=== PATIENT | female | born 1995 | race Hispanic/Latino ===

== ENCOUNTER → 2022-05-28 | Outpatient (CLI) | payer MEDICAID ==
[~2022-05-28] MED LIST: CRAN400C PO; IBUP200T49 PO; MOME17SP4; MONT10TA6 PO; PHEN15CA6 PO; PNV1TABL31 PO; PREN1TAB59 PO
== END | disposition home or self-care (01) ==
LOC: NPLAB 16:28
PROVIDERS: ATTEND Nurse Practitioner Family
DX: Z11.3 Encounter for screening for infections with a predominantly sexual mode of transmission (principal)
CPT/HCPCS: 87086

== ENCOUNTER 2024-06-06 20:32 | Emergency (ER) | payer SELFPAY ==
[~2024-06-06] VITALS: Ht 160 cm; Wt 62.6 kg
[2024-06-06 20:32] VITALS: BP 128/99; PULSE 72; RESP 18; TEMP 98.7; O2SAT 100
[~2024-06-06 20:32] MED LIST changes: -CRAN400C PO; +CRANBERRY400 MG PO; +MONT-45 PO; -MONT10TA6 PO; +NS 1000ML ONE
[2024-06-06 21:05] VITALS: BP 123/78; PULSE 71; RESP 18; TEMP 98.7; O2SAT 100
[2024-06-06 21:07] VITALS: BP 116/82; PULSE 69; RESP 18; TEMP 98.7; O2SAT 100
[2024-06-06 21:09] VITALS: BP 117/74; PULSE 76; RESP 18; TEMP 98.7; O2SAT 100
[2024-06-06 21:14] LABS: BILIRUBIN,URINE NEGATIVE (NEGATIVE); LEUKOCYTE ESTERASE ,URINE TRACE (NEGATIVE); NITRATE,URINE NEGATIVE (NEGATIVE); PH,URINE 6.5 (4.5-8.0); UROBILINOGEN,URINE 0.2 E.U./dL (0.2)
[2024-06-06 21:16] LABS: APPEARANCE,URINE CLOUDY; UA COLOR YELLOW
[2024-06-06 21:46] LABS: YEAST,URINE FEW (NONE SEEN)
[2024-06-06 22:15] VITALS: BP 109/68; PULSE 63; RESP 18; TEMP 98.7; O2SAT 100
[2024-06-06 22:19] LABS: HEMATOCRIT(ML) 39.9 % (36.0-46.0); HEMOGLOBIN 13.8 g/dL (12.0-15.0); MEAN CORP HGB 33.5 pg (26-34); MEAN CORP HGB CONCENTRATION 34.6 g/dL (33-36.5); MEAN CORP VOLUME 96.8 fL (78-100); RED BLOOD CELL 4.12 10^6/uL (4.00-5.20); RED CELL DISTRIBUTION WIDTH 11.3 % (11.5-14.5); WHITE BLOOD CELL 8.7 10^3/uL (4.5-11.0)
[2024-06-06] MEDS: NS 1000ML 1,000 ML IV STA (22:26)
[2024-06-06 23:06] LABS: ALBUMIN/GLOBULIN RATIO 1.481; ANION GAP 16.4; BUN/CREATININE RATIO 16.94 (10.0-20.0); CALCIUM 8.7 mg/dL (8.4-10.5); CARBON DIOXIDE 25.3 mmol/L (20.0-32); CREATININE SERUM 0.59 mg/dL (0.59-1.40); EST GFR, NON-AA 120.5 (>/=60); POTASSIUM 3.7 mmol/L (3.6-5.2)
[2024-06-06 23:34] VITALS: BP 110/73; PULSE 69; RESP 18; TEMP 98.7; O2SAT 100
== END 2024-06-06 23:37 | disposition home or self-care (01) ==
LOC: ER 20:32
DX: E86.0 Dehydration (principal); F41.9 Anxiety disorder, unspecified; R07.89 Other chest pain; R20.0 Anesthesia of skin; Z79.899 Other long term (current) drug therapy; Z90.49 Acquired absence of other specified parts of digestive tract; Z98.890 Other specified postprocedural states
CPT/HCPCS: 99284; 96360; 87086; 80053; 85027; 36415; 81001; 81025; 87186; 87077; 93005; J7030; 99283